=== PATIENT | male | born 1970 | race Caucasian/White ===

== ENCOUNTER 2018-12-26 00:44 | Outpatient (CLI) | payer MEDICAID, SELFPAY ==
--- NOTE | 2018-12-26 13:00 | DI.US_ITS ---
SYMPTOMS/DIAGNOSIS: EPIDIDYMAL MASS, N50.9 SCROTAL ULTRASOUND: Scrotal ultrasound was performed according to the usual protocol. There is a small bilateral hydrocele. The patient reportedly has a palpable abnormality of the right scrotum and this corresponds to a 10 mm in diameter simple epididymal cyst or spermatocele. No testicular mass identified. Normal Doppler evaluation of the testes. CONCLUSION: No evidence of a testicular mass. A 10 mm right epididymal head cyst or spermatocele noted.
== END 2018-12-26 01:04 ==
PROVIDERS: PCP Nurse Practitioner Primary Care; Visit Provider Internal Medicine
DX: N50.9 Disorder of male genital organs, unspecified (principal); N50.3 Cyst of epididymis; N43.3 Hydrocele, unspecified
CPT/HCPCS: 76870

== ENCOUNTER 2021-11-21 07:52 | Emergency (ER) | payer MEDICAID, SELFPAY ==
[2021-11-21 07:56] VITALS: BP 165/102; PULSE 76; RESP 16; TEMP 36.4; O2SAT 99
--- NOTE | 2021-11-21 08:07 | ED.GENADUL_ITS ---
Discharge Plan Disposition Patient Disposition: HOME Condition: Stable Discharge Details Clinical Impression: Pain due to dental caries Primary Care Provider: None,None ED Provider: Eva Jackson Home Meds and New Rx's Prescriptions: Continued amoxicillin-pot clavulanate 875-125 mg tablet 1 tab PO BID 0RF Label Comments: TAKE ONE TABLET BY MOUTH TWICE A DAY Discharge Instructions Instructions: Dental Caries (ED) Additional Instructions: Drink plenty of fluids and get plenty of rest. Take your antibiotics as directed until finished. Take 500 mg of Tylenol every 4 hours as needed for pain. Do not exceed more than 4000 mg of Tylenol in a 24 hour period. Take 600 mg of ibuprofen every 6 hours as needed for pain. Take the oxycodone for pain not relieved with Tylenol or ibuprofen. You were given a dental follow-up list. Please call to make a follow-up appointment with a dentist for reevaluation. Return immediately to the emergency department if you develop any worsening or new concerning symptoms such as fever, facial swelling, difficulty swallowing or any other concerns. Discharge Data Discharge Date/Time-TO BE ENTERED AT DEPARTURE: 11/21/21 09:14 Discharge Physician: Eva Jackson Medical Decision Making 51-year-old male presents with right lower dental pain for the past 4 weeks after breaking his tooth and now pain getting worse. He is currently on Augmentin for his pain after seen at [facility] 3 days ago. Blood pressure hypertensive, remainder vitals within normal limits. He appears uncomfortable but nontoxic. He has tenderness to palpation to teeth #30-32 with a small fracture noted on tooth #31. There is no abscess noted. Normal oropharynx. No drooling, trismus, submandibular swelling or lymphadenopathy. Patient is advised to finish his antibiotics. As he has been having difficulty sleeping, will give a few oxycodone to go. He was given the dental list follow- up. Usual and customary return precautions given prior to discharge. Medical Records Medical records reviewed: Yes I reviewed the patient's medical records. HPI General Mode of arrival: ambulatory . Date/Time Provider Initiated Documentation: 11/21/21 07:57 . Limitations to Documentation: no limitations . Information obtained by: patient . HPI Narrative: Patient is a 51-year-old male who presents with right lower dental pain for the past 4 weeks after breaking his tooth. He states the pain has been getting worse and he went to urgent care 3 days ago and was given Augmentin which she has been taking as scheduled. He states he has not been able to sleep for the past 3 nights due to the pain. He states he moved back to this area a year ago and does not have a dentist. He denies any relief with Tylenol or ibuprofen. Related Data Home Medications Medication Instructions Recorded Confirmed amoxicillin 875 mg-potassium 1 tab PO BID 11/21/21 11/21/21 clavulanate 125 mg tablet Allergies Allergy/AdvReac Type Severity Reaction Status Date / Time beeswax Allergy Unknown Unverified 11/19/15 13:46 methotrexate Allergy Hives Unverified 11/21/21 08:10 bees Allergy Severe Anaphylaxsi Uncoded 11/19/15 13:46 s General Stated Complaint: DentalOral AUREA: 4 Review of Systems All systems reviewed & are unremarkable except as noted in HPI and below Constitutional Constitutional: Reports as per HPI, Denies chills and Denies fever(s) Eyes Eyes: Denies blurry vision ENT Ears, Nose, Mouth, and Throat: Reports dental pain, Denies dizziness, Denies sore throat and Denies throat swelling Cardiovascular Cardiovascular: Denies chest pain and Denies dyspnea Respiratory Respiratory: Denies cough and Denies dyspnea Gastrointestinal Gastrointestinal: Denies abdominal pain, Denies diarrhea and Denies vomiting Genitourinary Genitourinary: Denies hematuria and Denies dysuria Musculoskeletal Musculoskeletal: Denies back pain and Denies numbness Integumentary/Breasts Skin/Breast: Denies lesions and Denies rash Neurologic Neurologic: Denies dizziness, Denies localized weakness and Denies numbness Allergic/Immunologic Allergic/Immunologic: Denies throat swelling PFSH All Active Problems (Updated 11/21/21 @ 08:37 by Eva Jackson DO) Pain due to dental caries (Acute) Medical History (Updated 11/21/21 @ 08:37 by Eva Jackson DO) Psoriasis Psoriatic arthritis Tobacco abuse disorder Social History Smoking/Tobacco Use Status: Current every day Tobacco Type: cigarettes Smoking risk assessment performed?: Yes Alcohol Intake: never Drug use: Occasionally Substance use type: marijuana Exam Const General: cooperative, healthy appearing and uncomfortable Orientation: alert, awake and oriented x3 HENMT Head: normal to inspection Ears: hearing grossly normal bilaterally, external ears normal, EAC abnormal cerumen impaction bilaterally and unable to visualize TM bilaterally General nose exam: external nose normal Face and sinus: normal facial exam Mouth: oral mucosae normal, no drooling and no trismus Teeth and gingiva: poor dentition Teeth image: 1. Tenderness to palpation of teeth # 30-32. Tooth #31 with fracture/tiny portion of tooth missing on superior posterior aspect. There is no abscess noted. Throat: posterior oropharynx normal, uvula midline and no peritonsillar masses Eyes General: appearance normal, both eyes and all related structures Neck Neck: normal visual inspection, full ROM, no lymphadenopathy, no meningeal signs, trachea midline, supple and No submandibular swelling Resp Effort & Inspection: normal respiratory effort and able to speak in complete s entences Cardio Rate: regular rate Skin General skin exam: no rashes or lesions noted Neuro General: patient alert, patient awake and patient oriented x3 Motor: muscle tone normal throughout Extrem General: normal to inspection and full ROM Psych Appearance: grossly normal Affect: normal affect Course Vital Signs Vital signs: Vital Signs Temperature 97.5 F L 11/21/21 07:56 Pulse 76 11/21/21 07:56 Respiratory Rate 16 11/21/21 07:56 Blood Pressure 165/102 H 11/21/21 07:56 Pulse Oximetry 99 11/21/21 07:56 Temperature 97.5 F L 11/21/21 07:56 Temperature Source Temporal Artery Scan 11/21/21 07:56 Pulse 76 11/21/21 07:56 Respiratory Rate 16 11/21/21 07:56 Respiratory Effort Non-Labored 11/21/21 08:02 Blood Pressure 165/102 H 11/21/21 07:56 Blood Pressure Position Sitting 11/21/21 07:56 Pulse Oximetry 99 11/21/21 07:56 Oxygen Delivery Method Room Air 11/21/21 07:56 Oxygen Flow Rate 0 11/21/21 07:56 Pain Level 7 11/21/21 07:56
[2021-11-21 09:05] VITALS: BP 152/82; PULSE 75; RESP 16; O2SAT 96
[2021-11-21 09:12] VITALS: BP 152/82; PULSE 75; RESP 16; O2SAT 96
== END 2021-11-21 09:14 | disposition home or self-care (01) ==
PROVIDERS: Emergency Provider Physician Assistant
DX: K08.89 Other specified disorders of teeth and supporting structures (principal); K02.9 Dental caries, unspecified
CPT/HCPCS: 99283

== ENCOUNTER 2022-03-27 18:14 | Outpatient (REF) | payer MEDICAID, SELFPAY ==
[2022-03-27 13:37] LABS: Abs Immature Grans 0.05 10^3/uL (0.0-0.06); Absolute Basophil Count 0.04 10^3/uL (0.0-0.2); Absolute Lymphocyte Count 2.02 10^3/uL (1.2-3.4); Absolute Monocyte Count 0.47 10^3/uL (0.1-0.8); Absolute Neutrophil Count 7.74 10^3/uL (1.2-6.7); Basophils % 0.4; HCT 39.4 % (40.0-50.0); HGB 13.5 g/dL (13.5-17.5); Immature Grans % 0.5; Lymphocytes % 19.4; MCH 31.3 pg (27.0-33.0); MCHC 34.3 % (32.0-36.0); MCV 91 fL (80-95); MPV 10.5 fL (8.0-11.0); Monocytes % 4.5; Neutrophils % 74.2; Platelet Count 234 10^3/uL (130-400); RBC 4.31 10^6/uL (4.36-5.78); RDW 12.6 % (11.8-14.1); WBC 10.42 10^3/uL (4.4-10.8)
[2022-03-27 13:41] LABS: ESR 50 mm/hr (0-15)
[2022-03-27 14:07] LABS: ALT 66 U/L (16-63); AST 31 U/L (15-37); Albumin 3.6 g/dL (3.4-5.0); Alkaline Phosphatase 90 U/L (46-116); Anion Gap 11.3 mmol/L (3-11); BUN 16 mg/dL (7-18); Bilirubin, Total 0.2 mg/dL (0.2-1.0); C-Reactive Protein 8.07 mg/dL (0.0-0.3); CO2 26.7 mmol/L (21.0-32.0); CREATININE 0.9 mg/dL (0.70-1.30); Calcium 8.6 mg/dL (8.5-10.1); Chloride 102 mmol/L (98-107); Glucose 91 mg/dL (74-106); Potassium 4.1 mmol/L (3.5-5.1); Sodium 140 mmol/L (136-145); Total Protein 7.5 g/dL (6.4-8.2)
[2022-03-28 10:44] LABS: Lyme Ab w Rflx to Lyme Confirm Positive (Negative)
[2022-03-28 15:20] LABS: Lyme IgG Ab Negative (Negative); Lyme IgM Ab Positive (Negative)
[2022-03-29 11:22] LABS: COVID-19 RT-PCR UVMMC Result Negative (Negative)
== END 2022-03-27 18:15 | disposition home or self-care (01) ==
LOC: LBN 18:14
PROVIDERS: Visit Provider Nurse Practitioner Family
DX: M79.10 Myalgia, unspecified site (principal); R53.83 Other fatigue; R68.83 Chills (without fever); L40.8 Other psoriasis; Z20.822 Contact with and (suspected) exposure to COVID-19
CPT/HCPCS: 80053; 85652; 86617; U0003; 85025; 86140; 86618

== ENCOUNTER 2024-07-03 17:10 | Outpatient (REF) | payer MEDICAID, SELFPAY ==
[2024-07-03 21:31] LABS: Abs Immature Grans 0.02 10^3/uL (0.0-0.06); Absolute Basophil Count 0.07 10^3/uL (0.0-0.2); Absolute Eosinophil Count 0.15 10^3/uL (0.0-0.7); Absolute Lymphocyte Count 2.21 10^3/uL (1.2-3.4); Absolute Monocyte Count 0.69 10^3/uL (0.1-0.8); Absolute Neutrophil Count 5.34 10^3/uL (1.2-6.7); Basophils % 0.8 %; Eosinophils % 1.8 %; HCT 42.7 % (40.0-50.0); HGB 14.6 g/dL (13.5-17.5); Immature Grans % 0.2 %; Lymphocytes % 26.1 %; MCH 30.7 pg (27.0-33.0); MCHC 34.2 % (32.0-36.0); MCV 90 fL (80-95); MPV 10.7 fL (8.0-11.0); Monocytes % 8.1 %; Platelet Count 234 10^3/uL (130-400); RBC 4.76 10^6/uL (4.36-5.78); RDW 13.1 % (11.8-14.1); RDW-SD 43.3 fL; WBC 8.48 10^3/uL (4.4-10.8)
[2024-07-03 21:49] LABS: ALT 32 U/L (16-63); AST 30 U/L (15-37); Albumin 4.2 g/dL (3.4-5.0); Alkaline Phosphatase 64 U/L (46-116); Anion Gap 11.2 mmol/L (3-11); BUN 23 mg/dL (7-18); Bilirubin, Total 0.28 mg/dL (0.2-1.0); CO2 27.8 mmol/L (21.0-32.0); CREATININE 1.4 mg/dL (0.70-1.30); Calcium 9.3 mg/dL (8.5-10.1); Chloride 104 mmol/L (98-107); Estimated GFR 60.47 (mL/min/1.73m2); Glucose 77 mg/dL (74-106); Potassium 4.2 mmol/L (3.5-5.1); Sodium 143 mmol/L (136-145); Total Protein 7.8 g/dL (6.4-8.2)
== END 2024-07-03 17:11 | disposition home or self-care (01) ==
LOC: LBN 17:10
PROVIDERS: Visit Provider Physician Assistant Medical
DX: R10.9 Unspecified abdominal pain (principal)
CPT/HCPCS: 80053; 85025